=== PATIENT | female | born 1955 | race Caucasian/White ===

== ENCOUNTER 2017-08-06 07:26 | Day surgery (SDC) | payer MEDICARE ==
[2017-08-06] MEDS ORDERED: Midazolam 2 MG/2 ML VIAL ONE (09:49)
[2017-08-06] MEDS ORDERED: Propofol 10 mg/ml Inj (20 ML) ONE ×2 (09:50→09:56)
[2017-08-06 10:33] VITALS: TEMP 97.8
[2017-08-06 11:02] VITALS: O2SAT 99
[2017-08-06] MEDS ORDERED: HYDROmorphone 0.5 mg/0.5 ml ISec IVP ONE ×2 (12:00→12:05)
[2017-08-06 14:24] VITALS: BP 117/77; PULSE 88; RESP 22
== END 2017-08-06 13:10 | disposition home or self-care (01) ==
LOC: C.ENDO 07:26
PROVIDERS: ATTEND Internal Medicine
DX: K63.5 Polyp of colon (principal); K57.30 Diverticulosis of large intestine without perforation or abscess without bleeding; K74.60 Unspecified cirrhosis of liver; I85.10 Secondary esophageal varices without bleeding; K62.5 Hemorrhage of anus and rectum; K22.70 Barrett's esophagus without dysplasia; K29.50 Unspecified chronic gastritis without bleeding; K44.9 Diaphragmatic hernia without obstruction or gangrene
CPT/HCPCS: 43239; 43244; 45380; 82948; 88305; J1170; J2001; J2250; J2704; J3010